=== PATIENT | female | born 1980 | race African-American/Black ===

== ENCOUNTER 2017-12-29 04:44 | Inpatient (IN) ==
[2017-12-29] MEDS ORDERED: LACTATED RINGERS 500 ML IV PRN (05:08)
[2017-12-29] MEDS ORDERED: ACETAMINOPHEN 325 MG TABLET PO PRN ×2 (05:08→19:50)
[2017-12-29] MEDS ORDERED: ONDANSETRON 4 MG/2 ML VIAL IV PRN ×2 (05:08→19:50)
[2017-12-29] MEDS ORDERED: BUTORPHANOL 2 MG/ML VIAL IV PRN (05:08)
[2017-12-29] MEDS: LACTATED RINGERS 1,000 ML IV SCH (12:38)
[2017-12-29] MEDS ORDERED: CITRIC ACID/SODIUM CITRATE 30 ML UDCUP PO ONE (13:45)
[2017-12-29] MEDS ORDERED: ePHEDrine 50 MG/ML AMP IV PRN (13:45)
[2017-12-29] MEDS ORDERED: PROMETHAZINE 25 MG/1 ML VIAL IM ONE (13:45)
[2017-12-29] MEDS ORDERED: FAMOTIDINE 20 MG/2 ML VIAL IV ONE (13:45)
[2017-12-29] MEDS ORDERED: diphenhydrAMINE 50 MG/1 ML VIAL IV PRN ×2 (13:45)
[2017-12-29] MEDS ORDERED: hydrOXYzine HCL 25 MG/1 ML VIAL IM PRN (13:45)
[2017-12-29] MEDS ORDERED: ONDANSETRON 4 MG/2 ML VIAL IV ONE (13:45)
[2017-12-29] MEDS: fentaNYL 2 MCG/ROPIV 0.2% EPID 150 ML EPIDURAL SCH (14:45)
[2017-12-29] MEDS ORDERED: OXYTOCIN/LR 20 UNIT/1,000 ML BAG IV ONE ×3 (19:25→19:50)
[2017-12-29] MEDS ORDERED: MEASLES/MUMPS/RUBELLA VACCINE 0.5 ML VIAL SUBCUT ONE (19:50)
[2017-12-29] MEDS ORDERED: BISACODYL 10 MG SUPP RECTAL PRN (19:50)
[2017-12-29] MEDS ORDERED: HYDROCORTISONE 2.5% RECTAL CREAM 30 GM TUBE TOP PRN (19:50)
[2017-12-29] MEDS ORDERED: RHO(D) IMMUNE GLOBULIN 300 MCG SYRINGE IM ONE (19:50)
[2017-12-29] MEDS ORDERED: DIPH/TET/ACEL PERT BOOSTER VACCINE 0.5 ML VIAL IM ONE (19:50)
[2017-12-29] MEDS ORDERED: oxyCODONE/ACETAMINOPHEN 5-325 MG TABLET PO PRN (19:50)
[2017-12-29] MEDS ORDERED: LANOLIN 50% CREAM 0.3 OZ TUBE TOP PRN (19:50)
[2017-12-29] MEDS ORDERED: WITCH HAZEL PADS 100/JAR TOP PRN (19:50)
[2017-12-29] MEDS ORDERED: BENZOCAINE 20%/MENTHOL 0.5% SPRAY 56 GM CAN TOP PRN (19:50)
[2017-12-29 19:58] LABS: Cord Venous Blood HCO3 20.4 MMOL/L; Cord Venous Blood PCO2 50.5 MMHG; Cord Venous Blood PO2 22.6
[2017-12-29] MEDS: METHYLDOPA 500 MG TABLET PO SCH (21:15)
[2017-12-29] MEDS: DOCUSATE SODIUM 100 MG CAPSULE PO SCH (22:20)
[2017-12-29] MEDS: IBUPROFEN 800 MG TABLET PO PRN (22:20)
[2017-12-30] MEDS: oxyCODONE/ACETAMINOPHEN 5-325 MG TABLET PO PRN ×2 (00:02→03:42)
[2017-12-30] MEDS: LACTATED RINGERS 1,000 ML IV SCH (03:37)
[2017-12-30 05:40] LABS: Basophils % 0.2 % (0.0-0.8); Eosinophils # 0.1 10*3/uL (0.0-0.87); Eosinophils % 0.8 % (0.00-10.9); Hematocrit 33.3 VOL% (35.7-47.0); Hemoglobin 11.1 GM/DL (12.0-16.0); Immature Granulocytes % 1.1 %; Immature Granulocytes Absolute 0.14 #; Lymphocytes # 2.6 10*3/uL (1.4-4.0); Lymphocytes % 19.7 % (21.3-54.2); Mean Corpuscular HGB Conc 33.3 GM/DL (32-36); Mean Corpuscular Hemoglobin 26 PG (27-34); Mean Corpuscular Volume 77.6 FL (87-102); Mean Platelet Volume 11.1 FL (9.6-12.0); Monocytes # 1.2 10*3/uL (0.11-0.8); Monocytes % 9.2 % (1.7-12.7); Platelet Count 198 T/CUMM (130-400); Red Blood Count 4.29 MC/CUMM (3.8-5.5); Red Cell Distribution Width 15.9 % (9.3-17.3); White Blood Count 13.1 T/CUMM (4-12)
[2017-12-30] MEDS: IBUPROFEN 800 MG TABLET PO PRN ×2 (05:52→13:33)
[2017-12-30 06:22] LABS: Hypochromasia 1+; Lymphocytes 17 % (20-55); Ovalocytes Slight; Platelet Estimate Adequate; Segmented Neutrophils 78 % (50-85); Total Cells Counted 100
[2017-12-30 06:23] LABS: Giant Platelets Few
[2017-12-30 08:55] LABS: Basophils % 0.2 % (0.0-0.8); Eosinophils # 0.1 10*3/uL (0.0-0.87); Eosinophils % 0.8 % (0.00-10.9); Hematocrit 34.5 VOL% (35.7-47.0); Hemoglobin 11.4 GM/DL (12.0-16.0); Immature Granulocytes % 1.3 %; Immature Granulocytes Absolute 0.15 #; Lymphocytes # 2.1 10*3/uL (1.4-4.0); Lymphocytes % 17.9 % (21.3-54.2); Mean Corpuscular Hemoglobin 26 PG (27-34); Mean Corpuscular Volume 78.8 FL (87-102); Mean Platelet Volume 10.8 FL (9.6-12.0); Monocytes % 8.4 % (1.7-12.7); Neutrophils # 8.4 10*3/uL (1.4-7.4); Neutrophils % 71.4 % (38.7-73.9); Platelet Count 199 T/CUMM (130-400); Red Blood Count 4.38 MC/CUMM (3.8-5.5); Red Cell Distribution Width 15.9 % (9.3-17.3); White Blood Count 11.8 T/CUMM (4-12)
[2017-12-30] MEDS ORDERED: METOPROLOL TARTRATE 100 MG TABLET PO SCH (09:00)
[2017-12-30 09:14] LABS: Alanine Aminotransferase < 6 U/L (13-56); Albumin 2.7 G/DL (3.4-5.0); Alkaline Phosphatase 80 U/L (45-117); Aspartate Amino Transferase 14 U/L (0-37); Blood Urea Nitrogen 7 MG/DL (7-18); Calcium 8.7 MG/DL (8.5-10.1); Glucose 104 MG/DL (74-106); Potassium 3.8 MMOL/L (3.5-5.1); Sodium 136 MMOL/L (136-145); Total Protein 6.1 G/DL (6.4-8.3); Uric Acid 4.9 MG/DL (2.6-6.0)
[2017-12-30] MEDS: CARVEDILOL 3.125 MG TABLET PO SCH ×2 (11:50→20:26)
[2017-12-30] MEDS: DOCUSATE SODIUM 100 MG CAPSULE PO SCH ×2 (11:52→20:26)
[2017-12-30] MEDS: LISINOPRIL 5 MG TABLET PO SCH ×2 (17:13→20:26)
[2017-12-31] MEDS: fentaNYL 2 MCG/ROPIV 0.2% EPID 150 ML EPIDURAL SCH (07:32)
[2017-12-31] MEDS: LACTATED RINGERS 1,000 ML IV SCH (07:32)
[2017-12-31] MEDS: METHYLDOPA 500 MG TABLET PO SCH (07:32)
[2017-12-31 08:22] VITALS: BP 126/77
[2017-12-31] MEDS: oxyCODONE/ACETAMINOPHEN 5-325 MG TABLET PO PRN (09:21)
[2017-12-31] MEDS: DOCUSATE SODIUM 100 MG CAPSULE PO SCH (09:21)
[2017-12-31] MEDS: LISINOPRIL 5 MG TABLET PO SCH (09:23)
[2017-12-31] MEDS: CARVEDILOL 3.125 MG TABLET PO SCH (09:23)
[2017-12-31] MEDS: IBUPROFEN 800 MG TABLET PO PRN (12:04)
== END 2017-12-31 12:23 | disposition home or self-care (01) | DRG 774 ==
LOC: N.LD 04:44 → INTOOBSV 04:44 → OBSVTOIN 04:44 → N.LD 09:33 → N.OB 12-30 10:53 → N.TELES 12-30 15:51
PROVIDERS: ADMIT Obstetrics & Gynecology; ATTEND Obstetrics & Gynecology